=== PATIENT | female | born 2000 ===

== ENCOUNTER 2022-06-27 07:59 | Day surgery (SDC) | payer MEDICAID ==
[~2022-06-27 07:59] MED LIST: Albuterol 0.083% 2.5 MG/3 ML Neb Soln NEB PRN; HYDROmorphone 1 MG/ML Syringe IVPUSH PRN; Metoclopramide 10 MG/2 ML SDV IVPUSH PRN; Morphine 2 MG/ML SYRINGE IVPUSH PRN; Naloxone 0.4 MG/ML SDV IVPUSH PRN; Ondansetron 4 MG/2 ML SDV IVPUSH PRN; fentaNYL 50 MCG/ML SDV IVPUSH PRN
[2022-06-27] MEDS ORDERED: Propofol 200 MG/20 ML SDV ONE (08:20)
[2022-06-27] MEDS ORDERED: Dexmedetomidine 200 MCG/2 ML SDV ONE (08:20)
[2022-06-27] MEDS ORDERED: fentaNYL 100 MCG/2 ML SDV ONE (08:21)
[2022-06-27] MEDS ORDERED: Water For Injection, Sterile 20 ML ONE (08:21)
[2022-06-27] MEDS ORDERED: Lactated Ringers 1,000 ML IV SCH (08:45)
[2022-06-27] MEDS ORDERED: Lidocaine 1% 20 ML MDV ONE (08:52)
[2022-06-27] MEDS ORDERED: Ondansetron 4 MG/2 ML SDV ONE (09:07)
[2022-06-27] MEDS ORDERED: ePHEDrine 50 MG/ML SDV ONE (09:08)
[2022-06-27] MEDS ORDERED: Ketorolac 30 MG/ML SDV ONE (09:22)
[2022-06-27] MEDS ORDERED: Acetaminophen/HYDROcodone 325-5 MG Tab PO PRN (09:42)
== END 2022-06-27 10:32 | disposition home or self-care (01) ==
LOC: MW.SDS 07:59
PROVIDERS: ATTEND Obstetrics & Gynecology
DX: Q52.3 Imperforate hymen (principal); Q52.5 Fusion of labia; F41.9 Anxiety disorder, unspecified; Z79.899 Other long term (current) drug therapy; Z91.012 Allergy to eggs; Z91.018 Allergy to other foods
CPT/HCPCS: 56700; J1885; J2405; J2704; J3010; J7120; 00940